=== PATIENT | male | born 1945 | race Caucasian/White ===

== ENCOUNTER 2018-01-08 12:46 | Outpatient (CLI) | payer MEDICARE ==
[2018-01-08 13:55] LABS: Hemoglobin 15.6 g/dL (14.0-18.0); Mean Corpuscular HGB CONC 34.2 g/dL (32.0-36.0); Mean Corpuscular Hemoglobin 35.2 pg (27.0-31.0); Mean Platelet Volume 8.7 fL (7.4-10.4); Platelet Count 167 thou/uL (130-400); RBC Distribution Width 11.5 % (11.5-14.5); Red Blood Cell (RBC) Count 4.44 mill/uL (4.70-6.10); White Blood Cell (WBC) Count 4.3 thou/uL (4.8-10.8)
[2018-01-08 14:05] LABS: Anion Gap 14 mmol/L (10-20); BUN (Urea Nitrogen) 15 mg/dL (8.4-25.7); CRP (Inflammatory) Less than 0.50 mg/dL (= or < 0.5); Calc. Creatinine Clearance 0 mL/min (70-130); Calcium 9.6 mg/dL (7.8-10.44); Carbon Dioxide 23 mmol/L (23-31); Chloride 105 mmol/L (98-107); Estimated GFR-MDRD Greater than 90; Glucose 110 mg/dL (83-110); Potassium 4.1 mmol/L (3.5-5.1); Sodium 138 mmol/L (136-145)
== END 2018-01-08 12:47 | disposition home or self-care (01) ==
LOC: LABBT 12:46
PROVIDERS: ATTEND Orthopaedic Surgery
DX: Z01.812 Encounter for preprocedural laboratory examination (principal); S42.295K Other nondisplaced fracture of upper end of left humerus, subsequent encounter for fracture with nonunion
CPT/HCPCS: 80048; 85027; 85652; 86140

== ENCOUNTER 2018-01-12 05:58 | Inpatient (IN) | payer MEDICARE ==
[2018-01-08 13:15] VITALS: BMI 27.7
[2018-01-12] MEDS ORDERED: Ropivacaine 0.2% HCl/PF 20 ML ONE (06:26)
[2018-01-12] MEDS ORDERED: Midazolam HCl 2 mg/2 ml Vial ONE (06:26)
[2018-01-12] MEDS ORDERED: Fentanyl 100 MCG/2 ML VIAL ONE ×2 (06:26→07:20)
[2018-01-12] MEDS ORDERED: Lidocaine 1% (PF) 30 ML VIAL ONE (06:26)
[2018-01-12] MEDS ORDERED: CEFAZOLIN/Water 2 GM/20 ML SYRINGE ONE (06:49)
[2018-01-12] MEDS ORDERED: traMADol HCl 50 MG TAB PO PRN ×4 (07:15→12:33)
[2018-01-12] MEDS ORDERED: Ondansetron HCl/PF 4 MG/2 ML Vial IVP PRN ×2 (07:15→12:33)
[2018-01-12] MEDS ORDERED: Ropivacaine 0.2% 550 ML 550 ML NERVE BLCK SCH (07:15)
[2018-01-12] MEDS ORDERED: Ketorolac Tromethamine 30 MG/ML VIAL IVP PRN ×2 (07:15→12:33)
[2018-01-12] MEDS ORDERED: Promethazine HCl 25 MG/ML VIAL IM PRN (07:15)
[2018-01-12] MEDS ORDERED: Zolpidem Tartrate 5 MG TAB PO PRN (07:15)
[2018-01-12] MEDS ORDERED: Fentanyl 100 MCG/2 ML VIAL IV PRN (07:17)
[2018-01-12] MEDS ORDERED: Bupivacaine HCl 0.5%/Epinephrine 1:200,000/PF 30 ml Vial ONE (09:24)
[2018-01-12] MEDS ORDERED: Milk Of Magnesia 30 ML UDCUP PO PRN (12:33)
[2018-01-12] MEDS ORDERED: Ondansetron ODT 4 MG TAB PO PRN (12:33)
[2018-01-12] MEDS ORDERED: HYDROcodone/Acetaminophen 10/325 mg Tablet PO PRN ×2 (12:33)
[2018-01-12] MEDS ORDERED: Acetaminophen 325 MG TAB PO PRN (12:33)
[2018-01-12] MEDS ORDERED: Morphine 4 MG/ML VIAL SLOW IVP PRN (13:16)
--- NOTE | 2018-01-12 13:49 | RAD ---
TWO VIEWS OF THE LEFT HUMERUS: COMPARISON: 09/20/12. FINDINGS/IMPRESSION: Two limited views of the left humerus were submitted for interpretation. There are 2 plates and scre ws spanning the proximal aspect of the humerus. Bone anchors are also seen in the humerus from prior rotator cuff repair. No perihardware lucency is appreciated. POS: PRINCESS
[2018-01-12] MEDS ORDERED: Ropivacaine 0.2% HCl/PF (40 MG/20 ML VIAL) ONE (14:22)
[2018-01-12] MEDS ORDERED: Ondansetron HCl/PF 4 MG/2 ML Vial ONE (14:41)
[2018-01-12] MEDS ORDERED: Dexamethasone 20 MG/5 ML VIAL ONE (14:41)
[2018-01-12] MEDS ORDERED: Glycopyrrolate 0.2 MG/ML 5 ML SYRINGE ONE (14:41)
[2018-01-12] MEDS ORDERED: ePHEDrine/0.9% NaCl/PF SYRINGE 50 mg/10 ml ONE (14:41)
[2018-01-12] MEDS ORDERED: PHENYLEPHRINE-NS 100 MCG/ML 10 ML SYRINGE ONE (14:41)
[2018-01-12] MEDS ORDERED: Ketorolac Tromethamine 30 MG/ML VIAL ONE (14:41)
[2018-01-12] MEDS ORDERED: PROPOFOL 200 MG/20 ML VIAL ONE (14:41)
[2018-01-12] MEDS ORDERED: Sterile Water 10 ML VIAL ONE (14:41)
[2018-01-12] MEDS ORDERED: CEFAZOLIN 1 GM VIAL ONE (14:41)
[2018-01-12] MEDS: Lactated Ringer's 1,000 ML IV SCH (16:33)
[2018-01-12] MEDS ORDERED: Simvastatin 5 MG TAB PO SCH (21:00)
[2018-01-12] MEDS: CEFAZOLIN/Water 2 GM/20 ML SYRINGE SLOW IVP SCH (23:49)
[2018-01-12] MEDS: Famotidine/PF 20 mg/2ml Vial SLOW IVP SCH (23:52)
[2018-01-12] MEDS: Aspirin 81 mg Enteric Coated Tablet PO SCH (23:52)
[2018-01-13 07:40] LABS: #Lymphocytes 1.2 thou/uL (1.20-3.40); #Neutrophils 7.4 thou/uL (1.40-6.50); %Basophils 0.1 % (0.0-1.0); %Eosinophils 0.1 % (0.0-10.0); %Lymphocytes 12.1 % (21.0-51.0); %Monocytes 10.8 % (0.0-10.0); %Neutrophils 76.9 % (42.0-75.0); Hemoglobin 12.8 g/dL (14.0-18.0); Mean Corpuscular HGB CONC 34.1 g/dL (32.0-36.0); Mean Corpuscular Hemoglobin 35.3 pg (27.0-31.0); Mean Platelet Volume 8.3 fL (7.4-10.4); Platelet Count 126 thou/uL (130-400); RBC Distribution Width 11.6 % (11.5-14.5); Red Blood Cell (RBC) Count 3.64 mill/uL (4.70-6.10); White Blood Cell (WBC) Count 9.6 thou/uL (4.8-10.8)
[2018-01-13 08:09] VITALS: TEMP 97.8
[2018-01-13] MEDS ORDERED: Amoxicillin/Potassium Clav 875 MG TAB PO SCH (09:00)
[2018-01-13] MEDS ORDERED: GLUC SU PO SCH (09:00)
[2018-01-13] MEDS ORDERED: Hydrochlorothiazide 25 MG TAB PO SCH (09:00)
[2018-01-13] MEDS ORDERED: Non-Formulary Item 1 EACH (Losartan/Hydrochlorothiazide [Losartan-Hctz 100-12.5 Mg Tab] 1 PO SCH (09:00)
[2018-01-13] MEDS ORDERED: CHONDRO SU A PO SCH (09:00)
[2018-01-13] MEDS ORDERED: [UNRECOGNIZED DRUG - OTHER] PO SCH (09:00)
[2018-01-13] MEDS ORDERED: Tamsulosin HCl 0.4 MG CAP PO SCH (09:00)
[2018-01-13] MEDS ORDERED: Losartan 25 MG TAB PO SCH (09:00)
[2018-01-13] MEDS ORDERED: VIT C PO SCH (09:00)
[2018-01-13] MEDS: Lactated Ringer's 1,000 ML IV SCH (09:53)
[2018-01-13] MEDS: Famotidine/PF 20 mg/2ml Vial SLOW IVP SCH (09:54)
[2018-01-13] MEDS ORDERED: Famotidine 20 MG TAB PO SCH (10:00)
[2018-01-13] MEDS: Aspirin 81 mg Enteric Coated Tablet PO SCH (10:33)
[2018-01-13 10:45] VITALS: BP 163/76
[2018-01-13] MEDS: CEFAZOLIN/Water 2 GM/20 ML SYRINGE SLOW IVP SCH (11:29)
--- NOTE | 2018-01-13 12:53 | OP ---
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 SURGICAL PROCEDURE: 1. Open reduction internal fixation, left proximal humerus. 2. Removal of hardware, left proximal humerus. 3. [place] of anterior iliac crest bone graft. 4. Fibular allograft strut graft. ANESTHESIA: General. CO-SURGEON: Antony Rosas M.D., and Naveen So M.D.. SUPERVISOR SAMPLE PREPARATION: Enrique Wood PA-C. BLOOD LOSS: 800 mL. IMPLANTS: Synthes system was used with a 3.5 LCP proximal humeral plate, 5-hole and a 3.5 mm 8-hole LCP locking plate for the proximal humerus with a combination of locking and cortical screws. Lincoln cote also had a fibular allograft as well as Infuse bone morphogenic protein graft. COMPLICATIONS: None. DRAINS: None. SPECIMEN: Swabs x2 sent for Gram stain culture and sensitivity. OUTCOME: Satisfactory. INDICATIONS: Patient is a pleasant 72-year-old gentleman who is status post left proximal humerus no nunion. The patient sustained a fracture many years ago and has had multiple surgical procedures per formed including intramedullary nailing, plating and most recently a blade plating. Despite these ef forts, patient has gone on to again nonunion, hardware failure with increasing pain in the shoulder. After discussion with patient including risks and benefits, we decided to proceed with a revision op en reduction internal fixation with a combination of bone morphogenic protein, iliac crest and fibula r strut graft. Informed consent has been obtained. I believe all questions have been answered. We did discuss with the patient that given the biology of his humerus that any guarantees or promises re garding union cannot be made or obtained and that the patient does appear to understand. We also dis cussed with him the potential surgical procedure of reverse shoulder replacement, he would like to av oid this if possible. Informed consent has been obtained. DESCRIPTION OF PROCEDURE: The patient was brought to the operating room and a timeout performed foll owed by induction of general anesthesia. Next, the patient was positioned in a semi beach chair posi tion and a sterile prep and drape was performed of the left upper extremity as well as the left anter ior iliac crest. Next, a deltopectoral approach to the shoulder was performed following the prior sk in incision. The cephalic vein was identified and reflected laterally with the deltoid. He was foun d to have significant deltoid atrophy. Once the deltopectoral interval was fully established, dissec tion was carried down and the fracture nonunion identified. There was bone overgrowth over the plate distal to the fracture, this had to be removed using a combination of rongeur and osteotome. Once f ully visualized, the 3 screws from the distal portion of the plate were removed, one of the screw hea ds had broken off and this required usage of the trephine and hardware removal kit to remove the frankie l portion of this screw. Two additional screws were then removed proximally and the blade plate zakiya tavares without difficulty. Next, the fracture gap was further explored and developed. Some scar tissue at the fracture gap was debrided again using a combination of osteotome and rongeur. At this point, it was decided to freshen the cut of the humerus distally, this was done with an oscillating saw. N ext, the canal of the shaft of the humerus was opened initially starting with a 3.5 drill and then pr oceeding stepwise with hand reamers and then power reamers up to a size 11. The canal of the proxima l neck was also opened in like fashion. Next, the wound was cultured x2 and then thoroughly irrigate d with normal saline. Next, the fibular strut graft was fashioned to fit down the canal of the humer us, this was pinned in place and then the head reduced to the combination of fibular strut graft and humeral shaft. Once in place, it was held in place with a bone tenaculum. At this point, iliac matty t graft was harvested through a small incision, this just posterior to the anterior superior iliac sp ine. After skin was sharply incised, dissection was carried down bluntly to the fascia overlying the iliac crest. This was incised and then a hinge was created of superior iliac crest bone with hingin g it posteriorly and then using curettes, the cancellous bone was harvested from the crest. At the c ompletion of harvest, this was irrigated and then closed with suture to reapproximate the roof of thi s iliac crest, this with #1 Vicryl and then 0 Vicryl for the fascia, 2-0 Vicryl and hiram for the s kin. Attention was then placed back at the humerus. The graft that was harvested was rolled in the bone morphogenic Infuse product and then this was placed at the fracture gap with 4 such rolls being created. The fracture was then compressed and then a 5-hole 3.5 LCP proximal humeral plate was appli ed to the lateral cortex of the humerus. This was held in place provisionally with a 3.5 mm cortical screw distal to the fracture and then locking screws proximally getting good purchase of the head wi th this device. Additional locking screws were then placed distally. This was then backed up with a n anterior plate, a 3.5 mm locking plate was bent to fit the anterior cortex of the humerus and this was then held in place with a combination of locking and nonlocking 3.5 screws. At the completion of this, there was felt to be a rigid stabilization of the fracture. The wound then closed in layers w ith 0 Vicryl for the deltopectoral interval, 2-0 Vicryl subcutaneously and hiram for the skin. A X eroform gauze tape dressing was applied to both wounds and then patient was transferred to [facility] in stable condition. There were no complications. He tolerated the procedure well.
== END 2018-01-13 11:50 | disposition home or self-care (01) | DRG 493 ==
LOC: SDC 05:58 → OBSVTOIN 14:36 → 3SE 14:36
PROVIDERS: ADMIT Orthopaedic Surgery; ATTEND Orthopaedic Surgery
PROC: 0PSD04Z Reposition Left Humeral Head with Internal Fixation Device, Open Approach (ICD-10-PCS; principal; 2018-01-12)
PROC: 0RPK04Z Removal of Internal Fixation Device from Left Shoulder Joint, Open Approach (ICD-10-PCS; 2018-01-12)
PROC: 0QB30ZZ Excision of Left Pelvic Bone, Open Approach (ICD-10-PCS; 2018-01-12)
DX: T84.018A Broken internal joint prosthesis, other site, initial encounter (principal); S42.295K Other nondisplaced fracture of upper end of left humerus, subsequent encounter for fracture with nonunion; W19.XXXA Unspecified fall, initial encounter; F17.290 Nicotine dependence, other tobacco product, uncomplicated; Z79.82 Long term (current) use of aspirin; Z88.5 Allergy status to narcotic agent
CPT/HCPCS: 36415; 76001; 85025; 87070; 87205; A4216; A4306; C1713; C1769; C1776; J0670; J0690; J1100; J1885; J2001; J2250; J2405; J2704; J2795; J3010

== ENCOUNTER 2018-10-10 02:01 | Outpatient (CLI) | payer MEDICARE ==
[2018-10-10 10:47] LABS: Hemoglobin 15.1 g/dL (14.0-18.0); Mean Corpuscular Hemoglobin 35.5 pg (27.0-31.0); Mean Platelet Volume 8.7 fL (7.4-10.4); Platelet Count 151 thou/uL (130-400); RBC Distribution Width 11.9 % (11.5-14.5); Red Blood Cell (RBC) Count 4.27 mill/uL (4.70-6.10); White Blood Cell (WBC) Count 4.2 thou/uL (4.8-10.8)
[2018-10-10 10:54] LABS: Prothrombin Time 13.4 SEC (12.0-14.7)
[2018-10-10 11:28] LABS: Anion Gap 14 mmol/L (10-20); BUN (Urea Nitrogen) 18 mg/dL (8.4-25.7); Calc. Creatinine Clearance 0 mL/min (70-130); Calcium 10.3 mg/dL (7.8-10.44); Carbon Dioxide 26 mmol/L (23-31); Chloride 104 mmol/L (98-107); Estimated GFR-MDRD 90; Glucose 109 mg/dL (83-110); Potassium 3.9 mmol/L (3.5-5.1); Sodium 140 mmol/L (136-145)
[2018-10-10 12:16] LABS: Bilirubin Negative (Negative); Blood, Urine Negative (Negative); Clarity CLEAR (Clear); Glucose, Urine (Dipstick) Negative (Negative); Leukocyte Negative (Negative); Nitrite Negative (Negative); Protein, Urine (Dipstick) Negative (Neg-Trace); Urobilinogen 0.2 mg/dL (0.2-1.0)
[2018-10-10 12:36] LABS: Bacteria/HPF None Seen HPF (None Seen); Hyaline Casts/LPF NONE SEEN LPF (0-3 Hyaline); RBC/HPF None Seen HPF (0-3); Squamous Epithelial 0-3 HPF (0-3); WBC/HPF None Seen HPF (0-3)
== END 2018-10-10 02:02 | disposition home or self-care (01) ==
LOC: LABBT 02:01
PROVIDERS: ATTEND Urology
DX: Z01.818 Encounter for other preprocedural examination (principal); N40.1 Benign prostatic hyperplasia with lower urinary tract symptoms; R39.11 Hesitancy of micturition
CPT/HCPCS: 80048; 81001; 85027; 85610; 85730; 87086; 93005; 93010

== ENCOUNTER 2018-11-20 14:45 | Outpatient (CLI) | payer MEDICARE ==
[2018-11-20 16:28] LABS: #Basophils 0.1 thou/uL (0.0-0.2); #Eosinphils 0.1 thou/uL (0.0-0.7); #Lymphocytes 1.8 thou/uL (1.20-3.40); #Monocytes 0.9 thou/uL (0.11-0.59); %Eosinophils 1.6 % (0.0-10.0); %Lymphocytes 26.7 % (21.0-51.0); %Monocytes 12.8 % (0.0-10.0); Hemoglobin 15.3 g/dL (14.0-18.0); Mean Corpuscular HGB CONC 34.6 g/dL (32.0-36.0); Mean Corpuscular Hemoglobin 35.6 pg (27.0-31.0); Mean Platelet Volume 8.7 fL (7.4-10.4); Platelet Count 153 thou/uL (130-400); White Blood Cell (WBC) Count 6.8 thou/uL (4.8-10.8)
[2018-11-20 16:42] LABS: ALT (SGPT) 53 U/L (8-55); AST (SGOT) 52 U/L (5-34); Albumin 4.6 g/dL (3.4-4.8); Alkaline Phosphatase 53 U/L (40-150); Anion Gap 16 mmol/L (10-20); BUN (Urea Nitrogen) 21 mg/dL (8.4-25.7); Bilirubin, Total 0.6 mg/dL (0.2-1.2); Calc. Creatinine Clearance 0 mL/min (70-130); Calcium 10.4 mg/dL (7.8-10.44); Carbon Dioxide 26 mmol/L (23-31); Chloride 104 mmol/L (98-107); Estimated GFR-MDRD 64; Glucose 96 mg/dL (83-110); Potassium 4.5 mmol/L (3.5-5.1); Protein, Total 7.6 g/dL (5.8-8.1); Sodium 141 mmol/L (136-145)
== END 2018-11-20 14:46 | disposition home or self-care (01) ==
LOC: LABBT 14:45
PROVIDERS: ATTEND Internal Medicine Cardiovascular Disease
DX: Z01.812 Encounter for preprocedural laboratory examination (principal); R94.39 Abnormal result of other cardiovascular function study
CPT/HCPCS: 80053; 85025

== ENCOUNTER 2018-11-21 06:17 | Day surgery (SDC) | payer MEDICARE ==
[2018-11-21] MEDS ORDERED: Heparin 10,000 UNITS/1 ML VIAL ONE (06:24)
[2018-11-21] MEDS ORDERED: Fentanyl 100 MCG/2 ML VIAL ONE (06:34)
[2018-11-21] MEDS ORDERED: Midazolam HCl 2 mg/2 ml Vial ONE (06:34)
[2018-11-21] MEDS ORDERED: Diazepam 5 MG TAB ONE (06:52)
[2018-11-21] MEDS ORDERED: Morphine 2 MG/ML SYRINGE ONE ×2 (08:41→08:47)
[2018-11-21] MEDS ORDERED: Morphine 2 MG/ML SYRINGE SLOW IVP PRN (09:02)
[2018-11-21] MEDS ORDERED: Fentanyl 100 MCG/2 ML VIAL SLOW IVP PRN ×2 (10:02)
[2018-11-21] MEDS ORDERED: Iopamidol 370 76% 100 ML VIAL ONE (17:15)
== END 2018-11-21 13:15 | disposition home or self-care (01) ==
LOC: CCL 06:17
PROVIDERS: ATTEND Internal Medicine Cardiovascular Disease
PROC: 4A023N7 Measurement of Cardiac Sampling and Pressure, Left Heart, Percutaneous Approach (ICD-10-PCS; principal; 2018-11-21)
PROC: B2111ZZ Fluoroscopy of Multiple Coronary Arteries using Low Osmolar Contrast (ICD-10-PCS; 2018-11-21)
PROC: B2181ZZ Fluoroscopy of Left Internal Mammary Bypass Graft using Low Osmolar Contrast (ICD-10-PCS; 2018-11-21)
PROC: B2131ZZ Fluoroscopy of Multiple Coronary Artery Bypass Grafts using Low Osmolar Contrast (ICD-10-PCS; 2018-11-21)
DX: I25.810 Atherosclerosis of coronary artery bypass graft(s) without angina pectoris (principal); I25.82 Chronic total occlusion of coronary artery; I10 Essential (primary) hypertension; E78.5 Hyperlipidemia, unspecified; N40.0 Benign prostatic hyperplasia without lower urinary tract symptoms; Z87.891 Personal history of nicotine dependence; Z79.82 Long term (current) use of aspirin; Z79.899 Other long term (current) drug therapy; Z88.5 Allergy status to narcotic agent
CPT/HCPCS: 76942; 93455; 93567; 99152; 99153; C1769; J1644; J2250; J2270; J3010; Q9967

== ENCOUNTER 2019-03-26 15:53 | Outpatient (CLI) | payer MEDICARE ==
[2019-03-26 17:28] LABS: Hemoglobin 16.6 g/dL (14.0-18.0); Mean Corpuscular HGB CONC 34.5 g/dL (32.0-36.0); Mean Corpuscular Hemoglobin 35.9 pg (27.0-31.0); Mean Platelet Volume 8.4 fL (7.4-10.4); Platelet Count 172 thou/uL (130-400); RBC Distribution Width 12.3 % (11.5-14.5); Red Blood Cell (RBC) Count 4.62 mill/uL (4.70-6.10); White Blood Cell (WBC) Count 4.8 thou/uL (4.8-10.8)
[2019-03-26 17:29] LABS: Bacteria/HPF None Seen HPF (None Seen); Bilirubin Negative (Negative); Blood, Urine Negative (Negative); Clarity Clear (Clear); Glucose, Urine (Dipstick) Normal (Negative); Leukocyte 25 Leu/uL (Negative); Mucous/LPF Rare LPF (<2+); Nitrite Negative (Negative); Protein, Urine (Dipstick) Negative (Neg-Trace); RBC/HPF 0-3 HPF (0-3); Squamous Epithelial 0-3 HPF (0-3); Urobilinogen Normal mg/dL (Less than 2)
[2019-03-26 17:31] LABS: PTT 28.7 SEC (22.9-36.1); Prothrombin Time 13.4 SEC (12.0-14.7)
[2019-03-26 18:12] LABS: Anion Gap 14 mmol/L (10-20); BUN (Urea Nitrogen) 16 mg/dL (8.4-25.7); Calc. Creatinine Clearance 0 mL/min (70-130); Calcium 10.2 mg/dL (7.8-10.44); Carbon Dioxide 24 mmol/L (23-31); Chloride 105 mmol/L (98-107); Estimated GFR-MDRD 82; Glucose 99 mg/dL (83-110); Potassium 4.4 mmol/L (3.5-5.1); Sodium 139 mmol/L (136-145)
== END 2019-03-26 15:54 | disposition home or self-care (01) ==
LOC: LABBT 15:53
PROVIDERS: ATTEND Urology
DX: Z01.818 Encounter for other preprocedural examination (principal); N40.1 Benign prostatic hyperplasia with lower urinary tract symptoms; R39.11 Hesitancy of micturition
CPT/HCPCS: 80048; 81001; 85027; 85610; 85730; 87086; 93005; 93010

== ENCOUNTER 2019-04-04 06:13 | Observation (INO) | payer MEDICARE ==
[2019-03-26 16:05] VITALS: BMI 28.7
[2019-04-04] MEDS ORDERED: Midazolam HCl 2 mg/2 ml Vial ONE (06:28)
[2019-04-04] MEDS ORDERED: Fentanyl 250 MCG/5 ML VIAL ONE (06:28)
[2019-04-04] MEDS ORDERED: Levofloxacin 500 mg/D5W 100 ml Premix Bag ONE (06:39)
[2019-04-04] MEDS ORDERED: B & O ONE (07:27)
[2019-04-04] MEDS ORDERED: Ondansetron PF 4 MG/2 ML Vial IVP PRN (08:53)
[2019-04-04] MEDS ORDERED: Acetaminophen 500 MG TAB PO PRN (08:53)
[2019-04-04] MEDS ORDERED: Mag-Al 1200 mg/1200 mg/30 ML UDCUP PO PRN (08:53)
[2019-04-04] MEDS ORDERED: Phenazopyridine HCl 97.5 MG TABLET PO PRN (08:53)
[2019-04-04] MEDS ORDERED: Oxybutynin 5 MG TAB PO PRN (08:53)
[2019-04-04] MEDS ORDERED: hydrALAZINE 20 MG/ML VIAL SLOW IVP PRN ×2 (08:53→09:06)
[2019-04-04] MEDS ORDERED: Non-Formulary Item 1 EACH (Olmesartan/Hydrochlorothiazide [Olmesartan-Hctz 20-12.5 Mg Tab PO SCH (09:00)
--- NOTE | 2019-04-04 12:13 | OP ---
DATE OF PROCEDURE: 04/04/2019 SERVICE: Urology. PREOPERATIVE DIAGNOSIS: Benign prostatic hyperplasia. POSTOPERATIVE DIAGNOSIS: Benign prostatic hyperplasia. PROCEDURE PERFORMED: Transurethral vaporization of the prostate. INDICATION FOR PROCEDURE: Mr. Morrison is a 73-year-old white male, who presented with urinary complaints and BPH. He is currently on Flomax. He does not wish to be on medication and would like better urination. We discussed surgical options including vaporization of the prostate, which he wished to proceed forward with. All risks and benefits were discussed. DESCRIPTION OF PROCEDURE: After identification of armband and verification of consent, the patient was brought back to the operating room, where he underwent anesthesia with an LMA. He was placed in the dorsal lithotomy position and prepped and draped in usual sterile fashion. After appropriate time-out, a lubricated 26-Sammarinese resectoscope sheath with visual obturator was passed through the urethra with ease into the level of the bladder. Cystoscopy was performed, which demonstrated no mucosal abnormalities. The ureters were in the orthotopic location. The prostate was hypertrophic as previously had been demonstrated on office cystoscopy. The visual obturator was switched out for the bipolar button vaporization electrode. Vaporization was carried out circumferentially from the bladder neck all the way down to the verumontanum, taking care not to go past the verumontanum. Relaxing incisions were made at 5 o'clock and 7 o'clock to ensure that the somewhat narrow bladder neck was fully relaxed. The intervening tissue was vaporized. Upon completion, meticulous hemostasis was performed on the tissues until there was absolutely no bleeding. Both ureters were identified in the orthotopic location. Vaporization had not been carried out past the verumontanum and the sphincter appeared intact. The resectoscope was then removed leaving the bladder full. A 22-Sammarinese three-way Canseco catheter was placed in the patient's bladder with 30 mL of sterile water placed into the balloon. The catheter was irrigated and started on CBI. A B and O suppository was placed in his rectum. The catheter was secured with a StatLock. The patient was taken out lithotomy and awakened and taken to the PACU for recovery in stable condition. COMPLICATIONS: None. ESTIMATED BLOOD LOSS: Minimal. RETAINED TUBES AND DRAINS: A 22-Sammarinese three-way Canseco catheter on CBI. SPECIMENS: None. DISPOSITION: The patient will be kept in the hospital overnight for CBI and plan for discharge tomorrow after void trial. Job ID: [id number]
[2019-04-04] MEDS: Docusate 100 MG CAP PO SCH ×2 (13:06→21:06)
[2019-04-04] MEDS: Hyoscyamine Sulfate SL 0.125 mg Tablet SL PRN ×2 (15:39→22:56)
[2019-04-04] MEDS ORDERED: Simvastatin 5 MG TAB PO SCH (21:00)
[2019-04-04] MEDS ORDERED: Non-Formulary Item 1 EACH (Simvastatin [Zocor] 10 MG) PO SCH (21:00)
[2019-04-05 05:22] LABS: #Lymphocytes 1.1 thou/uL (1.20-3.40); #Monocytes 0.6 thou/uL (0.11-0.59); #Neutrophils 8.3 thou/uL (1.40-6.50); %Basophils 0.2 % (0.0-1.0); %Eosinophils 0.1 % (0.0-10.0); %Lymphocytes 11.3 % (21.0-51.0); %Monocytes 6.2 % (0.0-10.0); %Neutrophils 82.1 % (42.0-75.0); Hemoglobin 13.8 g/dL (14.0-18.0); Mean Corpuscular HGB CONC 33.3 g/dL (32.0-36.0); Mean Corpuscular Hemoglobin 35.3 pg (27.0-31.0); Mean Platelet Volume 8.3 fL (7.4-10.4); Platelet Count 130 thou/uL (130-400); RBC Distribution Width 12.2 % (11.5-14.5); Red Blood Cell (RBC) Count 3.91 mill/uL (4.70-6.10); White Blood Cell (WBC) Count 10.1 thou/uL (4.8-10.8)
[2019-04-05 05:40] LABS: Anion Gap 14 mmol/L (10-20); BUN (Urea Nitrogen) 13 mg/dL (8.4-25.7); Calc. Creatinine Clearance 104 mL/min (70-130); Calcium 9.3 mg/dL (7.8-10.44); Carbon Dioxide 24 mmol/L (23-31); Chloride 104 mmol/L (98-107); Estimated GFR-MDRD Greater than 90; Glucose 122 mg/dL (83-110); Potassium 4.5 mmol/L (3.5-5.1); Sodium 137 mmol/L (136-145)
[2019-04-05 08:03] VITALS: TEMP 97.8
[2019-04-05] MEDS ORDERED: Hydrochlorothiazide 25 MG TAB PO SCH (09:00)
[2019-04-05] MEDS: Docusate 100 MG CAP PO SCH (09:02)
[2019-04-05 11:34] VITALS: BP 123/60
== END 2019-04-05 15:37 | disposition home or self-care (01) ==
LOC: SDC 06:13 → SURG A 08:53
PROVIDERS: ADMIT Urology; ATTEND Urology
PROC: 0V507ZZ Destruction of Prostate, Via Natural or Artificial Opening (ICD-10-PCS; principal; 2019-04-04)
DX: N40.0 Benign prostatic hyperplasia without lower urinary tract symptoms (principal); I25.10 Atherosclerotic heart disease of native coronary artery without angina pectoris; Z88.5 Allergy status to narcotic agent; Z95.1 Presence of aortocoronary bypass graft
CPT/HCPCS: 52648; 80048; 85025; 96365; G0378 ×2; 36415; J1956; J2250; J3010

== ENCOUNTER 2020-10-28 14:20 | Outpatient (CLI) | payer MEDICARE, OTHER ==
[2020-10-28 15:34] LABS: #Basophils 0.1 10x3/uL (0.0-0.2); #Eosinphils 0.1 10x3/uL (0.0-0.5); #Monocytes 0.8 10x3/uL (0.0-1.1); #Neutrophils 3.8 10x3/uL (1.5-8.4); %Basophils 0.8 % (0.0-2.0); %Eosinophils 2.3 % (0.0-6.0); %Lymphocytes 20.8 % (18.0-47.0); %Monocytes 13.3 % (0.0-10.0); %Neutrophils 62.5 % (40.0-75.0); Hemoglobin 15.4 g/dL (13.5-17.5); Mean Corpuscular HGB CONC 35.3 g/dL (32.0-36.0); Mean Corpuscular Hemoglobin 35.4 pg (27.0-33.0); Mean Corpuscular Volume 100.2 fl (81.2-95.1); Platelet Count 142 10x3/uL (150-450); RBC Distribution Width 12.2 % (11.5-14.5); Red Blood Cell (RBC) Count 4.35 10x6/uL (4.32-5.72); White Blood Cell (WBC) Count 6.1 10x3/uL (3.5-10.5)
[2020-10-29 00:56] LABS: SARS-CoV-2 PCR by NAA Not Detected (NotDetected)
== END 2020-10-28 14:21 | disposition home or self-care (01) ==
LOC: LABBT 14:20
PROVIDERS: ATTEND Orthopaedic Surgery Hand Surgery
DX: Z01.818 Encounter for other preprocedural examination (principal); Z20.822 Contact with and (suspected) exposure to COVID-19; G56.01 Carpal tunnel syndrome, right upper limb
CPT/HCPCS: 85025; 93005; U0003; U0005; 87635; 93010

== ENCOUNTER 2020-11-02 13:02 | Day surgery (SDC) | payer MEDICARE, OTHER ==
[2020-10-29 13:44] VITALS: BMI 27.4
[2020-11-02] MEDS ORDERED: Betamet Acet/Betamet Na Ph 30 MG/5 ML VIAL ONE (13:14)
[2020-11-02] MEDS ORDERED: Bupivacaine PF 0.5% 30 ML VIAL ONE (13:14)
[2020-11-02] MEDS ORDERED: Bacitracin Zinc Ointment 30 gm TUBE ONE (13:14)
[2020-11-02 13:54] LABS: #Eosinphils 0.1 thou/uL (0.0-0.7); #Lymphocytes 1.5 thou/uL (1.20-3.40); #Monocytes 0.9 thou/uL (0.11-0.59); #Neutrophils 3.9 thou/uL (1.40-6.50); %Basophils 0.3 % (0.0-1.0); %Eosinophils 1.2 % (0.0-10.0); %Lymphocytes 23.1 % (21.0-51.0); %Monocytes 13.6 % (0.0-10.0); %Neutrophils 61.7 % (42.0-75.0); Hemoglobin 15.7 g/dL (14.0-18.0); Mean Corpuscular Hemoglobin 35.4 pg (27.0-31.0); Mean Platelet Volume 7.9 fL (7.4-10.4); Platelet Count 169 thou/uL (130-400); RBC Distribution Width 11.8 % (11.5-14.5); Red Blood Cell (RBC) Count 4.45 mill/uL (4.70-6.10); White Blood Cell (WBC) Count 6.4 thou/uL (4.8-10.8)
[2020-11-02 17:27] LABS: SARS-CoV-2 PCR by NAA Not Detected (NotDetected)
== END 2020-11-02 15:15 | disposition home or self-care (01) ==
LOC: SDC 13:02
PROVIDERS: ATTEND Orthopaedic Surgery Hand Surgery
DX: G56.01 Carpal tunnel syndrome, right upper limb (principal); M18.11 Unilateral primary osteoarthritis of first carpometacarpal joint, right hand; M19.041 Primary osteoarthritis, right hand; M47.812 Spondylosis without myelopathy or radiculopathy, cervical region; M48.02 Spinal stenosis, cervical region; F17.290 Nicotine dependence, other tobacco product, uncomplicated; Z53.9 Procedure and treatment not carried out, unspecified reason; Z79.82 Long term (current) use of aspirin; Z79.899 Other long term (current) drug therapy; Z88.5 Allergy status to narcotic agent; Z95.1 Presence of aortocoronary bypass graft; Z20.822 Contact with and (suspected) exposure to COVID-19
CPT/HCPCS: 71046; 85025; U0003; U0005; 36415; 87635; J0702; J3490; S0020

== ENCOUNTER 2020-11-10 14:39 | Outpatient (CLI) | payer MEDICARE, OTHER ==
[2020-11-11 01:44] LABS: SARS-CoV-2 PCR by NAA Not Detected (NotDetected)
== END 2020-11-10 14:40 | disposition home or self-care (01) ==
LOC: LABBT 14:39
PROVIDERS: ATTEND Orthopaedic Surgery Hand Surgery
DX: G56.01 Carpal tunnel syndrome, right upper limb (principal); Z20.822 Contact with and (suspected) exposure to COVID-19
CPT/HCPCS: U0003; U0005; 87635

== ENCOUNTER 2020-11-13 09:50 | Day surgery (SDC) | payer MEDICARE, OTHER ==
[2020-11-11 15:28] VITALS: BMI 27.7
[2020-11-13] MEDS ORDERED: Bacitracin Zinc Ointment 30 gm TUBE ONE (12:21)
[2020-11-13] MEDS ORDERED: Bupivacaine PF 0.5% 30 ML VIAL ONE (12:21)
[2020-11-13] MEDS ORDERED: Sodium Chloride 0.9% 10 ML ONE (12:21)
[2020-11-13] MEDS ORDERED: Fentanyl 100 MCG/2 ML VIAL ONE (12:27)
[2020-11-13] MEDS ORDERED: Ketamine 50 MG/ML (10ML VIAL) ONE (12:27)
[2020-11-13] MEDS ORDERED: Propofol 500 MG/50 ML VIAL ONE (12:27)
[2020-11-13] MEDS ORDERED: Midazolam HCl 2 mg/2 ml Vial ONE (12:27)
== END 2020-11-13 15:00 | disposition home or self-care (01) ==
LOC: SDC 09:50
PROVIDERS: ATTEND Orthopaedic Surgery Hand Surgery
PROC: 01N50ZZ Release Median Nerve, Open Approach (ICD-10-PCS; principal; 2020-11-13)
DX: G56.01 Carpal tunnel syndrome, right upper limb (principal); M18.11 Unilateral primary osteoarthritis of first carpometacarpal joint, right hand; M19.041 Primary osteoarthritis, right hand; M47.812 Spondylosis without myelopathy or radiculopathy, cervical region; M48.02 Spinal stenosis, cervical region; I10 Essential (primary) hypertension; I25.10 Atherosclerotic heart disease of native coronary artery without angina pectoris; F17.290 Nicotine dependence, other tobacco product, uncomplicated; Z79.82 Long term (current) use of aspirin; Z79.899 Other long term (current) drug therapy; Z88.5 Allergy status to narcotic agent; Z95.1 Presence of aortocoronary bypass graft
CPT/HCPCS: J0690; J2250; J2704; J3010; J3490; S0020

== ENCOUNTER 2021-03-30 08:43 | Outpatient (CLI) | payer MEDICARE, OTHER | END 2021-03-30 08:44 | disposition home or self-care (01) | LOC: BICMRI 08:43 | PROVIDERS: ATTEND Orthopaedic Surgery Hand Surgery | DX: S83.242A Other tear of medial meniscus, current injury, left knee, initial encounter (principal); M94.262 Chondromalacia, left knee; M23.322 Other meniscus derangements, posterior horn of medial meniscus, left knee; M67.854 Other specified disorders of tendon, left hip ==

== ENCOUNTER 2021-12-31 09:47 | Outpatient (CLI) | payer MEDICARE ==
[2021-12-31 12:27] LABS: #Eosinphils 0.1 10x3/uL (0.0-0.5); #Monocytes 0.6 10x3/uL (0.0-1.1); #Neutrophils 2.6 10x3/uL (1.5-8.4); %Basophils 0.9 % (0.0-2.0); %Eosinophils 1.4 % (0.0-6.0); %Lymphocytes 26.5 % (18.0-47.0); %Monocytes 12.6 % (0.0-10.0); %Neutrophils 58.4 % (40.0-75.0); Hemoglobin 15.5 g/dL (13.5-17.5); Mean Corpuscular HGB CONC 35.1 g/dL (32.0-36.0); Mean Corpuscular Hemoglobin 35.1 pg (27.0-33.0); Mean Corpuscular Volume 99.8 fl (81.2-95.1); Mean Platelet Volume 11.1 fl (7.4-10.4); Platelet Count 157 10x3/uL (150-450); RBC Distribution Width 12.9 % (11.5-14.5); Red Blood Cell (RBC) Count 4.42 10x6/uL (4.32-5.72); White Blood Cell (WBC) Count 4.4 10x3/uL (3.5-10.5)
[2021-12-31 12:30] LABS: Bilirubin Neg (Negative); Blood, Urine Negative (Negative); Clarity Clear (Clear); Glucose, Urine (Dipstick) Normal (Negative); Ketone, Urine Negative (Negative); Leukocyte Negative (Negative); Nitrite Negative (Negative); Protein, Urine (Dipstick) 15 mg/dl (Neg-Trace); Urobilinogen Normal mg/dL (Less than 2); pH, Urine 6.5 (5.0-9.0)
[2021-12-31 19:05] LABS: SARS-CoV-2 PCR by NAA Not Detected (NotDetected)
== END 2021-12-31 09:48 | disposition home or self-care (01) ==
LOC: LABBT 09:47
PROVIDERS: ATTEND Orthopaedic Surgery Hand Surgery
DX: Z01.818 Encounter for other preprocedural examination (principal); M19.041 Primary osteoarthritis, right hand; Z20.822 Contact with and (suspected) exposure to COVID-19
CPT/HCPCS: 81003; 85025; U0003; U0005

== ENCOUNTER 2022-01-04 05:56 | Day surgery (SDC) | payer MEDICARE, OTHER ==
[2022-01-03 10:56] VITALS: BMI 27.4
[2022-01-04] MEDS ORDERED: fentaNYL Citrate/PF 100 MCG/2 ML SYRINGE ONE (06:23)
[2022-01-04] MEDS ORDERED: Bupivacaine PF 0.5% 30 ML VIAL ONE (06:31)
[2022-01-04] MEDS ORDERED: Betamet Acet/Betamet Na Ph 30 MG/5 ML VIAL ONE (06:31)
[2022-01-04] MEDS ORDERED: Bacitracin Zinc Ointment 30 gm TUBE ONE (06:31)
[2022-01-04] MEDS ORDERED: Neomycin-Polymyxin 1 ML AMP ONE (06:31)
[2022-01-04] MEDS ORDERED: Midazolam HCl 2 mg/2 ml Vial ONE (06:49)
[2022-01-04] MEDS ORDERED: Dexamethasone 20 MG/5 ML VIAL ONE (06:50)
[2022-01-04] MEDS ORDERED: Ondansetron PF 4 MG/2 ML Vial ONE (06:50)
[2022-01-04] MEDS ORDERED: PROPOFOL 200 MG/20 ML VIAL ONE (06:50)
[2022-01-04] MEDS ORDERED: Bupivacaine HCl 0.5%/Epinephrine 1:200,000/PF 30 ml Vial ONE (06:50)
[2022-01-04] MEDS ORDERED: Ketorolac Tromethamine 30 MG/ML VIAL ONE (06:50)
[2022-01-04] MEDS ORDERED: ePHEDrine 50 MG/ML VIAL ONE (06:50)
[2022-01-04] MEDS ORDERED: ceFAZolin (BATCH) 2 GM/100 ML BAG ONE (07:08)
== END 2022-01-04 09:12 | disposition home or self-care (01) ==
LOC: SDC 05:56
PROVIDERS: ATTEND Orthopaedic Surgery Hand Surgery
PROC: 0LN70ZZ Release Right Hand Tendon, Open Approach (ICD-10-PCS; principal; 2022-01-04)
PROC: 3E0T3BZ Introduction of Anesthetic Agent into Peripheral Nerves and Plexi, Percutaneous Approach (ICD-10-PCS; 2022-01-04)
DX: M65.341 Trigger finger, right ring finger (principal); M65.841 Other synovitis and tenosynovitis, right hand; M15.1 Heberden's nodes (with arthropathy); M15.2 Bouchard's nodes (with arthropathy); M18.0 Bilateral primary osteoarthritis of first carpometacarpal joints; I10 Essential (primary) hypertension; I25.10 Atherosclerotic heart disease of native coronary artery without angina pectoris; F17.290 Nicotine dependence, other tobacco product, uncomplicated; Z79.82 Long term (current) use of aspirin; Z79.899 Other long term (current) drug therapy; Z88.5 Allergy status to narcotic agent; Z95.1 Presence of aortocoronary bypass graft
CPT/HCPCS: J0690; J0702; J1100; J1885; J2250; J2405; J2704; J3490; S0020